=== PATIENT | female | born 1995 | race Two or more races ===

== ENCOUNTER → 2025-01-12 08:16 | Outpatient (CLI) | payer OTHER | END | disposition home or self-care (01) | LOC: PRENATAL 08:16 | PROVIDERS: ATTEND Obstetrics & Gynecology Maternal & Fetal Medicine | DX: O44.00 Complete placenta previa NOS or without hemorrhage, unspecified trimester (principal); Z3A.19 19 weeks gestation of pregnancy ==

== ENCOUNTER 2025-04-12 08:02 | Outpatient (CLI) | payer OTHER | END 2025-04-12 08:04 | disposition home or self-care (01) | LOC: PRENATAL 08:02 | PROVIDERS: ATTEND Obstetrics & Gynecology Maternal & Fetal Medicine | DX: O26.849 Uterine size-date discrepancy, unspecified trimester (principal); O36.8199 Decreased fetal movements, unspecified trimester, other fetus; Z3A.31 31 weeks gestation of pregnancy ==

== ENCOUNTER 2025-06-01 06:57 | Inpatient (IN) | payer OTHER ==
[2025-06-01] VITALS (8 sets, daily range): BP systolic 102–134; BP diastolic 51–81; O2SAT 98
[~2025-06-01] VITALS: Ht 154.9 cm; Wt 70.8 kg
[2025-06-01] MEDS ORDERED: PRENATAL TABLE1 EAC1 PO (09:41)
[2025-06-01] MEDS ORDERED: RINGERS SOLUTION,LACTATED 1,000 ML IV SCH (09:45)
[2025-06-01] MEDS ORDERED: OXYTOCIN 500 ML IV SCH (09:45)
[2025-06-01 09:51] LABS: BASO % 0.3 % (0.1-1.2); EOS # 0.11 (0.04-0.54); EOS % 1.0 % (0.7-7.0); LYMPH # 1.58 (1.18-3.74); LYMPH % 13.7 % (19.3-53.1); MEAN PLATELET VOLUME 10.40 fl (9.4-12.4); MONO # 0.82 (0.24-0.82); MONO % 7.1 % (4.7-12.5); NEUT # 8.83 (1.56-6.13); NEUT % 76.9 % (34.0-71.1); RED CELL DISTRIBUTION WIDTH 13.4 % (11.6-14.4); URINE APPEARANCE Clear; URINE BILIRRUBIN Negative (NEGATIVE); URINE BLOOD Trace; URINE COLOR Yellow; URINE GLUCOSE Negative (NEGATIVE); URINE KETONE Negative (NEGATIVE); URINE LEUKOCYTE Small; URINE NITRATE Negative; URINE PROTEIN Negative (NEGATIVE); URINE UROBILINOGEN 0.2 E.U./dl
[2025-06-01 09:52] LABS: URINE BACTERIA 8872.8 uL (0.0-1933); URINE EPITHELIAL CELLS 109.6 uL (0.0-38.8); URINE RBC 12.1 uL (0.0-20.8); URINE WBC 61.3 uL (0.0-23.2)
[2025-06-01 09:59] LABS: URINE CAST 0.58 uL (0.0-1.40)
[2025-06-01 10:09] LABS: INR < 0.93
[2025-06-01] MEDS ORDERED: AMPICILLIN SODIUM 2,000 MG VIAL IV ONE (10:15)
[2025-06-01] MEDS ORDERED: AMPICILLIN SODIUM 1,000 MG VIAL IV SCH (13:00)
[2025-06-01] MEDS ORDERED: MORPHINE SULFATE 4 MG/ML VIAL IV STA (15:31)
[2025-06-01] MEDS ORDERED: OXYTOCIN 20 UNITS/1000ML RL PIGGYBAG IV ONE (15:32)
[2025-06-01] MEDS ORDERED: ERYTHROMYCIN BASE OPHT 1GM EACH TUBE OP ONE (15:32)
[2025-06-01] MEDS ORDERED: LIDOCAINE HCL 1% 10ML VIAL ONE (15:32)
[2025-06-01] MEDS ORDERED: CHLORHEXIDINE GLUCONATE 120 ML BOTTLE TOP ONE (15:32)
[2025-06-01] MEDS ORDERED: OXYTOCIN 1,000 ML IV SCH (18:45)
[2025-06-01] MEDS ORDERED: CHLORHEXIDINE GLUCONATE 120 ML BOTTLE TP SCH (18:45)
[2025-06-01] MEDS ORDERED: ACETAMINOPHEN 500 MG GEL..CAP PO PRN (18:45)
[2025-06-01 21:25] LABS: BASO % 0.2 % (0.1-1.2); EOS # 0.01 (0.04-0.54); EOS % 0.1 % (0.7-7.0); LYMPH # 0.89 (1.18-3.74); LYMPH % 4.9 % (19.3-53.1); MEAN PLATELET VOLUME 10.30 fl (9.4-12.4); MONO # 0.87 (0.24-0.82); MONO % 4.8 % (4.7-12.5); NEUT # 16.27 (1.56-6.13); NEUT % 89.3 % (34.0-71.1); RED CELL DISTRIBUTION WIDTH 13.5 % (11.6-14.4)
[2025-06-02 00:46] VITALS: BP 110/64
[2025-06-02 08:00] VITALS: BP 110/76
[2025-06-02] MEDS ORDERED: PNV,CALCIUM 72/IRON/FOLIC ACID 1 TAB TABLET PO SCH (09:00)
[2025-06-02 17:06] VITALS: BP 119/82
[2025-06-03 00:40] VITALS: BP 114/71
[2025-06-03 08:00] VITALS: BP 113/72
== END 2025-06-03 16:15 | disposition home or self-care (01) | DRG 807 ==
LOC: LDR 06:57 → O/R 16:35 → LDR 16:36 → OB/GYN 16:52
PROVIDERS: ADMIT Obstetrics & Gynecology; ATTEND Obstetrics & Gynecology
PROC: 10E0XZZ Delivery of Products of Conception, External Approach (ICD-10-PCS; principal; 2025-06-01)
PROC: 0KQM0ZZ Repair Perineum Muscle, Open Approach (ICD-10-PCS; 2025-06-01)
PROC: 4A1HXCZ Monitoring of Products of Conception, Cardiac Rate, External Approach (ICD-10-PCS; 2025-06-01)
DX: O70.1 Second degree perineal laceration during delivery (principal); Z37.0 Single live birth; O99.824 Streptococcus B carrier state complicating childbirth; Z3A.39 39 weeks gestation of pregnancy